=== PATIENT | female | born 1960 | race Caucasian/White ===

== ENCOUNTER 2021-06-26 13:29 | Observation (INO) | payer OTHER, SELFPAY ==
[2021-06-26] VITALS (11 sets, daily range): BP systolic 98–150; BP diastolic 46–128; PULSE 55–205; RESP 14–28; TEMP 36.1–37; O2SAT 94–100; BMI 45.5
--- NOTE | ~2021-06-26 | XR_ITS ---
EXAMINATION: XR chest 1V portable DATE: 06/26/2021 14:52 INDICATION: Chest pain and dizziness. TECHNIQUE: frontal view of the chest was obtained. COMPARISON: Chest radiograph dated 01/14/[address] dated 12/02/2018 FINDINGS: The lungs are clear with no focal airspace opacities, pulmonary edema, pleural effusion or pneumothor ax. The cardiomediastinal silhouette is normal. Median sternotomy wires. IMPRESSION: 1. No acute cardiopulmonary disease. Reviewed, dictated and finalized at location A.
--- NOTE | 2021-06-26 13:33 | ECG_ITS ---
Measurements Intervals [place] Rate: 196 P: MS: 0 QRS: 43 QRSD: 73 T: 221 QT: 218 QTc: 394 Interpretive Statements SUPRAVENTRICULAR TACHYCARDIA CANNOT RULE OUT SEPTAL INFARCT, AGE INDETERMINATE ST-T WAVE ABNORMALITY IN INF/HIGH LAT LEADS- CONSIDER ISCHEMIA BASELINE ARTIFACT- I, III, AVL, V1-V3 ABNORMAL ECG Electronically Signed On 06-26-2021 14:25:20 CDT by Daniel Mchugh D.O.
--- NOTE | 2021-06-26 13:36 | PC.NURSE ---
BETTY Lynn 6 mg Adenosine 1336
--- NOTE | 2021-06-26 13:50 | ED.GENADULT ---
HPI - General Adult General Chief complaint: Arrhythmia/Palpitations Stated complaint: HEART RACING Source: RN notes reviewed History of Present Illness HPI narrative: Patient presents to emergency department from work for arrhythmia. Patient states she is at work today when she began to feel lightheaded and dizzy and feels like her heart was racing at that time we checked her blood pressure no other heart was elevated in the upper 100s to 200s and called EMS and EMS arrived the patient was found to be in SVT. The patient was given 1 dose of adenosine with no change in SVT patient denies any chest pain or shortness of breath denies any abdominal pain nausea vomiting states she has a history of triple bypass and is followed by cardiology Dr. Ribeiro Related Data Home Medications Medication Instructions Recorded Confirmed albuterol sulfate 90 mcg/actuation 1 puff INHALATION Q4H PRN 04/23/21 05/02/21 aerosol inhaler alprazolam 1 mg tablet 1 mg PO QHS 04/23/21 05/02/21 aspirin 81 mg tablet 81 mg PO DAILY 04/23/21 05/02/21 atorvastatin 40 mg tablet 40 mg PO DAILY 04/23/21 05/02/21 clopidogrel 75 mg tablet 75 mg PO DAILY 04/23/21 05/02/21 cyclobenzaprine 10 mg tablet 10 mg PO TID 04/23/21 05/02/21 furosemide 20 mg tablet 20 mg PO QAM 04/23/21 05/02/21 hydrochlorothiazide 12.5 mg tablet 12.5 mg PO DAILY 04/23/21 05/02/21 losartan 25 mg tablet 25 mg PO DAILY 04/23/21 05/02/21 magnesium oxide 400 mg (241.3 mg 400 mg PO DAILY 04/23/21 05/02/21 magnesium) tablet metoprolol succinate 50 mg 50 mg PO DAILY 04/23/21 05/02/21 tablet,extended release 24 hr nitroglycerin 0.4 mg sublingual 0.4 mg SUBLINGUAL Q5M PRN 04/23/21 05/02/21 tablet omeprazole 20 mg capsule,delayed 20 mg PO DAILY 04/23/21 05/02/21 release tramadol 50 mg tablet 50 mg PO Q6H PRN 04/23/21 05/02/21 Allergies Allergy/AdvReac Type Severity Reaction Status Date / Time Sulfa (Sulfonamide Allergy Mild Hives Verified 06/26/21 13:50 Antibiotics) Review of Systems Review of Systems: Gen.: Denies fevers or chills ENT: Denies congestion Respiratory: Denies shortness of breath or cough CV: See HPI GI: Denies abdominal pain nausea, emesis or diarrhea denies burning, urgency, frequency or hematuria Musculoskeletal: Denies back pain or muscle pain Neuro: Denies numbness, tingling, weakness or focal weakness Skin: Denies rash Except as documented, all other systems reviewed and negative [facility] Past Medical History Medical History (Updated 06/26/21 @ 16:47 by Morgan Lynn DO) Emphysema/COPD Heart attack High cholesterol History of myocardial infarction Hypertension Surgical History Surgical History (Updated 05/02/21 @ 09:23 by Sena Galdamez) Coronary artery disease involving coronary bypass graft H/O right knee surgery History of coronary artery bypass graft Hx of bilateral hip replacements Hx of cholecystectomy Family History Family History Father , age 62 Heart disease Hypertension Mother , age 72 Hypertension Cerebrovascular accident Sibling Heart disease Grandparent Heart disease Social History Social History Smoking status: Current every day smoker Tobacco type: cigarettes Alcohol intake: current Alcohol use details: rare Additional occupation/education comments: [employer] Gender identity (if verbalized by the patient): Female Exam Narrative: APPEARANCE: No acute distress, nontoxic, resting in bed EYES: EOMI HEENT: Normocephalic, atraumatic, OMM RESPIRATORY: No respiratory distress Clear to auscultation bilaterally with no rhonchi wheezing or rales. CARDIOVASCULAR: Tachycardic and regular without murmurs rubs or gallops. ABDOMINAL: Soft, nontender, nondistended, no rebound or guarding MUSCULOSKELETAl: Moves all extremities. No clubbing, cyanosis or edema. NEURO:
[2021-06-26] MEDS: AMIODARONE 150 MG/D5W 100 ML 150 MG/100 ML BAG 600 MG IV CONT (13:55)
--- NOTE | 2021-06-26 14:05 | ECG_ITS ---
Measurements Intervals [place] Rate: 121 P: IA: 0 QRS: 41 QRSD: 77 T: 32 QT: 311 QTc: 443 Interpretive Statements ATRIAL FIBRILLATION WITH RAPID VENTRICULAR RESPONSE CANNOT RULE OUT SEPTAL INFARCT, AGE INDETERMINATE BASELINE ARTIFACT- II, III, AVR, AVF, V3-V6 ABNORMAL ECG Electronically Signed On 06-26-2021 14:26:44 CDT by Daniel Mchugh D.O.
[2021-06-26 14:11] LABS: Basophils Percent Auto 0.3 % (0.2-1.2); Eosinophils Absolute Auto 0.2 K/mm3 (0-0.3); Eosinophils Percent Auto 3.5 % (0-4.4); Hematocrit 42.8 % (37.0-47.0); Hemoglobin 13.6 g/dL (12.0-15.0); Immature Granulocyte Absolute 0.02 K/mm3 (0.00-0.031); Immature Granulocyte Percent A 0.3 % (0-0.5); Lymphocytes Percent Auto 23.1 % (18.3-44.2); Mean Corpuscular HGB Conc 31.8 g/dl (32-36); Mean Corpuscular Hemoglobin 26.5 pg (26-34); Mean Corpuscular Volume 83.3 fl (80-100); Mean Platelet Volume 10.4 fl (7.4-10.4); Monocytes Absolute Auto 0.3 K/mm3 (0.1-0.6); Monocytes Percent Auto 5.1 % (2.6-8.5); Neutrophils Absolute Auto 4.1 K/mm3 (1.3-6.7); Neutrophils Percent Auto 67.7 % (45.5-73.1); Platelet Count Result 176 k/mm3 (150-375); Red Blood Count 5.14 M/mm3 (4.2-5.4); Red Cell Distribution Width 15.3 % (11.5-14.5); White Blood Count 6.1 K/mm3 (4.5-10.0)
[2021-06-26] MEDS: AMIODARONE 360 MG/D5W 200 ML 360 MG/200 ML BAG 33.33 MG IV CONT (14:13)
[2021-06-26 14:21] LABS: INR 0.9; Prothrombin Time 12.5 Seconds (11.1-14.7)
[2021-06-26 14:22] LABS: Partial Thromboplastin Time 24.2 SECONDS (22.3-36.8)
[2021-06-26 14:28] LABS: Anion Gap 13 mmol/L (8-16); Blood Urea Nitrogen 16 mg/dL (7-17); Calcium 9.7 mg/dL (8.4-10.2); Carbon Dioxide 23 mmol/L (22-30); Chloride 107 mmol/L (98-107); Estimated CRCL calculation 65 ml/min; Estimated Glomerular Filt Rate > 60; Glucose 107 mg/dL (65-110); Magnesium 2.1 mg/dL (1.6-2.3); Potassium 3.9 mmol/L (3.4-5.0); Sodium 143 mmol/L (137-145)
[2021-06-26 14:40] LABS: Troponin I < 0.012 ng/mL (0.000-0.034)
--- NOTE | 2021-06-26 15:16 | PC.NURSE ---
BETTY Lynn 12 mg Adenosine 1342
--- NOTE | 2021-06-26 15:42 | ECG_ITS ---
Measurements Intervals [place] Rate: 76 P: 43 GA: 144 QRS: 44 QRSD: 79 T: 48 QT: 371 QTc: 419 Interpretive Statements SINUS RHYTHM WITH MARKED SINUS ARRHYTHMIA CANNOT RULE OUT SEPTAL INFARCT, AGE INDETERMINATE BASELINE ARTIFACT- II, III, AVF, V3-V6 ABNORMAL ECG Electronically Signed On 06-26-2021 17:34:57 CDT by Daniel Mchugh D.O.
--- NOTE | 2021-06-26 15:53 | PM.CNCAR ---
Assessment and Plan Assessment and plan (1) CAD (coronary artery disease), autologous vein bypass graft: Code(s): I25.810 - Atherosclerosis of coronary artery bypass graft(s) without angina pectoris Status: Acute (2) Smoker: Code(s): F17.200 - Nicotine dependence, unspecified, uncomplicated Status: Acute Assessment and Plan: Counseled regarding smoking cessation. (3) High cholesterol: Code(s): E78.00 - Pure hypercholesterolemia, unspecified Status: Inactive Assessment and Plan: On Atorvastatin. (4) Hypertension: Code(s): I10 - Essential (primary) hypertension Status: Inactive Assessment and Plan: Stable. Continue home medications. (5) ELVIE (obstructive sleep apnea): Code(s): G47.33 - Obstructive sleep apnea (adult) (pediatric) Status: Acute Assessment and Plan: Advise she needs to use CPAP regularly. (6) Obesity: Code(s): E66.9 - Obesity, unspecified Status: Acute (7) PSVT (paroxysmal supraventricular tachycardia): Code(s): I47.1 - Supraventricular tachycardia Status: Acute (8) PAF (paroxysmal atrial fibrillation): Code(s): I48.0 - Paroxysmal atrial fibrillation Status: Acute Assessment and Plan: Probably due to ELVIE. [id number] 3. Continue with Amiodarone drip for 24 hours loading, then will start PO dosing. Will stop Plavix and start Xarelto 20 mg daily. History of Present Illness History of Present Illness Consult date/time: 06/26/21 15:53 Reason for consult: PAF/PSVT 60 yr old woman presented to ED via EMS for palpitations and sob. She has a history of CAD with CABG x 3 vessels in 2019 at [place], [facility] but is noncompliant with CPAP, dyslipidemia, hypertension, smoking. Her regular photoengraver apprentice is Dr. Goodwin. Reports she was at work during lunch break when she noted fast HR and sob. An ambulance was called to [facility] and noted she was in SVT and given Adenosine without success. In ED she was given more Adenosine and it was noted she convert to sinus rhythm but lasted only 20 seconds, and then she went into atrial fib with RVR. Amiodarone drip was started which converted her to sinus rhythm. She can walk a few blocks without any problems. Reason For Visit: HEART RACING Review of Systems Review of Systems: All systems reviewed & are unremarkable except as noted in HPI and below Constitutional: Constitutional: Reports as per HPI, Denies chills and Denies fever(s) Cardiovascular: Cardiovascular: Reports as per HPI, Denies chest pain, Reports irregular heart rhythm, Denies leg edema and Reports dyspnea Respiratory: Respiratory: Reports as per HPI and Reports dyspnea Gastrointestinal: Gastrointestinal: Reports as per HPI and Denies abdominal pain Genitourinary: Genitourinary: Reports as per HPI and Denies dysuria Musculoskeletal: Musculoskeletal: Reports as per HPI Neurologic: Reports as per HPI, Denies dizziness and Denies syncope [facility] Past Medical History Medical History (Updated 06/26/21 @ 15:59 by Daniel Mchugh DO) Emphysema/COPD Heart attack High cholesterol History of myocardial infarction Hypertension Surgical History Surgical History (Updated 05/02/21 @ 09:23 by Sena Galdamez) Coronary artery disease involving coronary bypass graft H/O right knee surgery History of coronary artery bypass graft Hx of bilateral hip replacements Hx of cholecystectomy Family History Family History Father , age 62 Heart disease Hypertension Mother , age 72 Hypertension Cerebrovascular accident Sibling Heart disease Grandparent Heart disease Social History Social History Smoking status: Current every day smoker Tobacco type: cigarettes Alcohol intake: current Alcohol use details: rare Additional occupat
--- NOTE | 2021-06-26 17:26 | ADMGEN ---
This patient, Sena Pretty, was admitted to IMU Room 206-01 on 06/26/21 at 1705. Patient/family oriented to hospital policies and general routines including ID bracelet, bed and alarms, visiting hours, pain management, procedures, bathroom and other care routines, personal items, smoking policy, room service/diet, and visiting hours. Information on how to activate the Rapid Response Team has been discussed. Patient/Family are encouraged to report perceived risks to care and to ask questions if they do not understand what they are told or what they should do.
--- NOTE | 2021-06-26 17:30 | PHAR ---
HOME NEDICATION IDENTIFIED PHENTERAMINE HYDROCHLORIDE
[2021-06-26] MEDS: RIVAROXABAN 20 MG TABLET PO (18:31)
--- NOTE | 2021-06-26 19:00 | PM.IMHP ---
H&P: HPI History of Present Illness Date/Time: 06/26/21 19:00 Chief Complaint: Racing heart. Narrative: This is a 60-year-old female smoker with coronary artery disease, hypertension, hyperlipidemia, untreated sleep apnea, and COPD who presented to the emergency department earlier today via EMS from her place of employment for evaluation of a racing heart. She felt in her usual state of health when she went to work today. At lunchtime she when outside with her coworkers and she began to feel sweaty, short of breath, and a bit lightheaded. She went inside, used her inhaler, sat down for a few minutes, and felt a bit better. She went back to work but shortly thereafter she once again began feeling lightheaded and dizzy with increasing shortness of breath. 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 She reports having a normal blood pressure however she was extremely tachycardic with a pulse in the high 190s. On EMS arrival she was in SVT and was given 1 dose of adenosine with no change. Two subsequent doses of adenosine were given and after the 3rd toe she went into atrial fibrillation with rapid ventricular response. She was bolused with amiodarone and she has subsequently converted to a sinus rhythm. at the time my evaluation she feels back to her usual state of health and has no specific complaints. She denies fever, cold and flu symptoms, chest pain, pleuritic pain, current shortness of breath, current palpitations, nausea, vomiting. Review of Systems Review of Systems: Twelve systems were reviewed with pertinent positives and negatives as per HPI. No recent cold or flu symptoms. She had COVID in November 2020. I believe she was vaccinated thereafter. No cough or shortness of breath. She does have dyspnea with exertion on occasion due to emphysema. Except as documented, all other systems were reviewed and are negative. [facility] Past Medical History Medical History (Updated 06/26/21 @ 22:30 by Nella Rojo PA-C) Anxiety Coronary artery disease Dyslipidemia Emphysema/COPD Gastroesophageal reflux disease History of myocardial infarction Hypertension Obstructive sleep apnea Not compliant with treatment. Tobacco dependence Surgical History Surgical History (Updated 06/26/21 @ 22:26 by Nella Rojo PA-C) History of arthroscopy of right knee History of bilateral hip replacements History of section History of cholecystectomy History of coronary artery bypass graft (2019) Family History Family History Father , age 62 Heart disease Mother , age 72 Cerebrovascular accident Sibling Heart disease Grandparent Heart disease Social History Social History (Updated 06/26/21 @ 22:27 by Nella Rojo PA-C) Social History: Surrogate decision maker: Erica Pretty, daughter. Code status: Full code. Years smoked: 35 Smoking status: Current every day smoker Tobacco type: cigarettes Additional smoking assessment comments: Smokes about 4 cigarettes a day. Alcohol intake: current Alcohol use details: Consumes alcohol rarely social occasions and in moderation. Substance use: never Additional living arrangements comments: Resides in [place] with her , 2 children, and some grandchildren. 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 Meds Home Medications and Allergies Home Medications Medication Instructions Recorded Confirmed Type albuterol sulfate 90 mcg/actuation 1 puff INHALATION Q4H PRN 04/23/21 06/26/21 History aerosol inhaler alprazolam 1 mg tablet 1 mg PO QHS 04/23/21 06/26/21 History aspirin 81 mg tablet 81 mg PO DAILY 04/23/21 06/26/21 History atorvastatin 40 mg tablet 40 mg PO DAILY 04/23/21 06/26/21 History clopidogrel 75 mg tablet 75 mg PO DAILY 04/23/21 0
[2021-06-26 19:35] LABS: Troponin I 0.023 ng/mL (0.000-0.034)
[2021-06-26] MEDS: AMIODARONE 360 MG/D5W 200 ML 360 MG/200 ML BAG 16.67 MG IV CONT (20:36)
[2021-06-26 20:52] LABS: Troponin I 0.021 ng/mL (0.000-0.034)
[2021-06-27] VITALS (12 sets, daily range): BP systolic 108–150; BP diastolic 47–63; PULSE 58–84; RESP 16–18; TEMP 36.4–36.7; O2SAT 94–100
--- NOTE | 2021-06-27 | ECHO_ITS ---
Patient Info Name: Sena Pretty Age: 60 years : 1960 Gender: Female Ht: 60 in Wt: 242 lbs BSA: 2.23 m2 HR: 58 bpm BP: 108 / 63 mmHg Technical Quality: Fair Exam Date: 06/27/2021 8:04 AM Exam Location: [facility] Patient Status: Inpatient Admit Date: 06/26/2021 Staff Ordering Physician: Daniel Mchugh DO Truck Driver Supervisor: Marcella Willams RDCS Attending Provider: Phong Chung MD Referring Physician: Jeison HASSAN; Exam Type: CA echo doppler color flow Study Info Indications I48.0 - Paroxysmal atrial fibrillation Complete two-dimensional, color flow and Doppler transthoracic echocardiogram is performed. Summary 1. Complete two-dimensional, color flow and Doppler transthoracic echocardiogram is performed. 2. Left ventricular chamber dimension is normal. 3. Left ventricular systolic function is normal, estimated at 60-65%. 4. The left ventricular diastolic function is normal. 5. E/e' 17 is elevated. 6. There is trace mitral valve regurgitation. 7. No pulmonary hypertension, estimated pulmonary arterial systolic pressure is 28 mmHg. 8. There is trace pulmonic regurgitation. Left Ventricle E/e' 17 is elevated. Left ventricular chamber dimension is normal. Left ventricular systolic function is normal, estimated at 60-65%. The left ventricular diastolic function is normal. Right Ventricle Right ventricular chamber dimension is normal. Right ventricular systolic function is normal. Left Atria Left atrial chamber dimension is normal. Right Atria Right atrial chamber dimension is normal. Aortic Valve The aortic valve is trileaflet. There is no aortic valve stenosis. There is no aortic valve regurgitation. Pulmonic Valve There is trace pulmonic regurgitation. Mitral Valve There is no mitral valve stenosis. There is trace mitral valve regurgitation. Tricuspid Valve There is no tricuspid valve regurgitation. No pulmonary hypertension, estimated pulmonary arterial systolic pressure is 28 mmHg. Pericardium/Pleural There is no pericardial effusion. Inferior Vena Cava Normal inferior vena cava with >50% collapse upon inspiration consistent with normal right atrial pressure, 5 mmHg. Aorta The aortic root size at the sinus of Valsalva is normal. Left Ventricular Outflow Tract Name Value Normal LVOT 2D LVOT Diameter 2.0 cm LVOT Doppler LVOT Peak Gradient 4 mmHg LVOT Mean Gradient 2 mmHg LVOT VTI 25 cm LVOT VTI/AV VTI Ratio 0.7 LVOT Stroke Volume 78 ml LVOT CO 4.4 l/min LVOT CI 2.0 l/min/m2 Pulmonic Valve Name Value Normal RVOT Doppler RVOT Peak Gradient 2 mmHg PV D
[2021-06-27 05:21] LABS: Basophils Percent Auto 0.4 % (0.2-1.2); Eosinophils Absolute Auto 0.2 K/mm3 (0-0.3); Eosinophils Percent Auto 4.1 % (0-4.4); Hematocrit 35.9 % (37.0-47.0); Hemoglobin 11.3 g/dL (12.0-15.0); Immature Granulocyte Absolute 0.03 K/mm3 (0.00-0.031); Immature Granulocyte Percent A 0.6 % (0-0.5); Lymphocytes Absolute Auto 1.08 K/mm3 (0.9-3.2); Lymphocytes Percent Auto 21.9 % (18.3-44.2); Mean Corpuscular HGB Conc 31.5 g/dl (32-36); Mean Corpuscular Hemoglobin 26.4 pg (26-34); Mean Corpuscular Volume 83.9 fl (80-100); Mean Platelet Volume 10.1 fl (7.4-10.4); Monocytes Absolute Auto 0.3 K/mm3 (0.1-0.6); Monocytes Percent Auto 6.5 % (2.6-8.5); Neutrophils Absolute Auto 3.3 K/mm3 (1.3-6.7); Neutrophils Percent Auto 66.5 % (45.5-73.1); Platelet Count Result 137 k/mm3 (150-375); Red Blood Count 4.28 M/mm3 (4.2-5.4); Red Cell Distribution Width 15.5 % (11.5-14.5); White Blood Count 4.9 K/mm3 (4.5-10.0)
[2021-06-27 05:42] LABS: Alanine Aminotransferase 26 U/L (4-35); Albumin Level 3.3 g/dL (3.5-5.1); Alkaline Phosphatase 76 U/L (38-126); Anion Gap 8 mmol/L (8-16); Aspartate Amino Transferase 26 U/L (14-36); Bilirubin,Total 0.4 mg/dL (0.2-1.3); Blood Urea Nitrogen 13 mg/dL (7-17); Calcium 8.7 mg/dL (8.4-10.2); Carbon Dioxide 24 mmol/L (22-30); Chloride 107 mmol/L (98-107); Estimated CRCL calculation 80 ml/min; Estimated Glomerular Filt Rate > 60; Glucose 87 mg/dL (65-110); Magnesium 1.9 mg/dL (1.6-2.3); Sodium 139 mmol/L (137-145)
--- NOTE | 2021-06-27 07:45 | PM.PNCARD ---
Progress Note: A&P Assessment and Plan (1) CAD (coronary artery disease), autologous vein bypass graft: Code(s): I25.810 - Atherosclerosis of coronary artery bypass graft(s) without angina pectoris Status: Acute (2) Smoker: Code(s): F17.200 - Nicotine dependence, unspecified, uncomplicated Status: Acute Assessment and Plan: Counseled regarding smoking cessation. (3) High cholesterol: Code(s): E78.00 - Pure hypercholesterolemia, unspecified Status: Inactive Assessment and Plan: On Atorvastatin. (4) Hypertension: Code(s): I10 - Essential (primary) hypertension Status: Chronic Assessment and Plan: Stable. Continue home medications. (5) ELVIE (obstructive sleep apnea): Code(s): G47.33 - Obstructive sleep apnea (adult) (pediatric) Status: Acute Assessment and Plan: Advise she needs to use CPAP regularly. (6) Obesity: Code(s): E66.9 - Obesity, unspecified Status: Acute (7) PSVT (paroxysmal supraventricular tachycardia): Code(s): I47.1 - Supraventricular tachycardia Status: Acute (8) PAF (paroxysmal atrial fibrillation): Code(s): I48.0 - Paroxysmal atrial fibrillation Status: Acute Assessment and Plan: Probably due to ELVIE. [id number] 3. Continue with Amiodarone drip for 24 hours loading, then will start PO dosing. Stopped Plavix and started Xarelto 20 mg daily. March d/c home after Amiodarone drip completes total of 24 hours, then start Amiodarone 200 mg PO BID. She needs f/u with her regular building custodian, Dr. Goodwin in 1-2 weeks. Subjective Date/time seen: 06/27/21 07:45 Doing well. No chest pain or sob. Exam Const: General: cooperative, healthy appearing and comfortable Nutritional Appearance: obese Resp: Auscultation: clear to auscultation bilaterally, no crackles, no rales, no rhonchi and no wheezes Cardio: Jugular venous distension: no JVD Heart sounds: no murmurs GI: GI Palp: No abdominal tenderness and Yes Soft to palpation Neuro: General: oriented to person, oriented to place and oriented to time Extrem: Right lower extremity: no edema Left lower extremity: no edema Objective Data Vital Signs Vital Signs: Vital Signs - 24 hr 06/26/21 13:26 06/26/21 13:55 06/26/21 14:13 Temperature 97.8 F Pulse Rate 205 H 168 H 122 H Respiratory Rate 28 H Blood Pressure 135/89 139/67 134/92 H Pulse Oximetry 98 06/26/21 14:33 06/26/21 16:08 06/26/21 16:40 Temperature 96.9 F L Pulse Rate 122 H 68 66 Respiratory Rate 19 14 16 Blood Pressure 150/128 H 119/65 140/82 Pulse Oximetry 98 100 100 06/26/21 17:05 06/26/21 18:00 06/26/21 20:00 Temperature 98.1 F 98.6 F Pulse Rate 60 65 62 Respiratory Rate 16 18 Blood Pressure 98/46 L 122/59 L Pulse Oximetry 98 100 06/26/21 21:45 06/26/21 22:00 06/27/21 00:00 Temperature 97.5 F L Pulse Rate 55 L 65 61 Respiratory Rate 17 17 Blood Pressure 111/59 L Pulse Oximetry 94 94 06/27/21 02:00 06/27/21 04:00 06/27/21 06:00 Temperature 97.6 F Pulse Rate 62 59 L 59 L Respiratory Rate 18 Blood Pressure 108/63 Pulse Oximetry 95 06/27/21 07:42 Temperature 97.9 F Pulse Rate 84 Respiratory Rate 16 Blood Pressure 121/57 L Pulse Oximetry 96 Intake/Output Intake/Output: Intake & Output 06/24/21 06/25/21 06/26/21 06/27/21 23:59 23:59 23:59 23:59 Intake Total 340 500 Output Total 400 Balance 340 100 Meds/Results Medications: Active Medications Generic Name Dose Route Start Last Admin Trade Name Freq PRN Reason Stop Dose Admin Albuterol 1 puff 06/26/21 22:34 Albuterol Sulfate (*Sp) Aerosol 1 Puff INHALATION Q4H PRN Shortness Of Breath Or Wheezing Alprazolam 1 mg 06/26/21 23:50 06/27/21 02:31 Alprazolam (*Crx) 0.5 Mg Tablet PO Not Given HS [facility] Aspirin 81 mg 06/27/21 08:00 Aspirin 81 Mg Chewable Tablet PO DAILY@0800 [facility] Atorvastat
[2021-06-27] MEDS: AMIODARONE 360 MG/D5W 200 ML 360 MG/200 ML BAG 16.67 MG IV CONT (09:00)
[2021-06-27] MEDS: ASPIRIN 81 MG CHEWABLE TABLET PO (09:05)
[2021-06-27] MEDS: METOPROLOL SUCCINATE EXT REL 50 MG TABCR PO (09:05)
[2021-06-27] MEDS: ATORVASTATIN 40 MG TABLET PO (09:06)
[2021-06-27] MEDS: LOSARTAN POTASSIUM 25 MG TABLET PO (09:06)
--- NOTE | 2021-06-27 15:51 | PM.DS ---
DS: Admitting Diagnosis Admitting Diagnosis AFib with RVR DS: Discharge Diagnosis Discharge Diagnosis (1) Atrial fibrillation with RVR: Code(s): I48.91 - Unspecified atrial fibrillation Status: Acute (2) PSVT (paroxysmal supraventricular tachycardia): Code(s): I47.1 - Supraventricular tachycardia Status: Acute (3) PAF (paroxysmal atrial fibrillation): Code(s): I48.0 - Paroxysmal atrial fibrillation Status: Acute (4) Supraventricular tachycardia: Code(s): I47.1 - Supraventricular tachycardia Status: Acute DS: Summary Hospital Course Hospital Course: This is a 60-year-old female smoker with coronary artery disease, hypertension, hyperlipidemia, untreated sleep apnea, and COPD who presented to the emergency department via EMS from her place of employment for evaluation of a racing heart. She felt in her usual state of health when she went to work today. At lunchtime she when outside with her coworkers and she began to feel sweaty, short of breath, and a bit lightheaded. She went inside, used her inhaler, sat down for a few minutes, and felt a bit better. She went back to work but shortly thereafter she once again began feeling lightheaded and dizzy with increasing shortness of breath. 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 She reports having a normal blood pressure however she was extremely tachycardic with a pulse in the high 190s. On EMS arrival she was in SVT and was given 1 dose of adenosine with no change. Two subsequent doses of adenosine were given and after the 3rd one she went into atrial fibrillation with rapid ventricular response. She was bolused with amiodarone and she has subsequently converted to a sinus rhythm. she has the amiodarone infusion C was back to sinus rhythm and back to her usual state of health. She was admitted for continuation of amiodarone infusion and cardiology evaluation. Dr. bird saw the patient and was continued on amiodarone and was switched to oral amiodarone after 24 hour of infusion. She was also started on Xarelto for stroke prophylaxis. With start of Xarelto her Plavix was stopped she is advised to follow-up with her regular maintenance technician Dr. Goodwin in 1-2 weeks. AFib with RVR could could be related to underlying untreated sleep apnea which she would work with her primary care doctor to follow-up on. She was also recently started on anti obesity medication which sounds like phentermine have advised her to stop taking that as well. Time Spent with Patient Time attestation: Total time spent providing and/or coordinating discharge services: Exam Narrative: General: Well-developed female sitting up in bed no distress. HEENT: Normocephalic, atraumatic. PERRL, EOMI. Sclerae anicteric. Oral mucosa moist. Oropharynx is crowded. Neck: Supple. No JVD. Respiratory: Lungs are clear to auscultation bilaterally. Cardiovascular: Regular rate and rhythm with S1-S2. Occasional ectopy. Gastrointestinal: Abdomen is soft, obese, nontender, and nondistended with positive bowel sounds. Skin: Warm and dry. No rash or lesions on limited exam. Extremities: No cyanosis or clubbing. Trace flora ankle edema bilaterally. Radial and pedal pulses intact. Negative Steffanie sign bilaterally. Neurological: Alert. Cranial nerves 2-12 are grossly intact. No gross focal deficits to casual conversation. Psychiatric: Pleasant and cooperative with normal mood and affect. Judgment and insight intact. DS: Data Data Completed and Pending Labs on day of discharge: Labs from last 24 hours 06/27/21 06/27/21 06/26/21 04:54 04:54 20:23 WBC 4.9 RBC 4.28 Hgb 11.3 L Hct 35.9 L MCV 83.9 MCH 26.4 MCHC 31.5 L RDW 15.5 H Plt Count 137 L MPV 10.1 Immature Gran % (Auto) 0.6 H Neut % (Auto) 66.5 Lymph % (Auto) 21.9 Aurora % (Auto) 6.5
[2021-06-27] MEDS: AMIODARONE HCL 200 MG TABLET PO (17:37)
[2021-06-27] MEDS: RIVAROXABAN 20 MG TABLET PO (17:38)
== END 2021-06-27 18:20 | disposition home or self-care (01) ==
LOC: ANHED 13:54 → ANHIMU 16:47
PROVIDERS: Admitting Provider Internal Medicine; Emergency Provider Emergency Medicine; PCP Family Medicine; Visit Provider Internal Medicine
DX: I47.1 Supraventricular tachycardia (principal); I48.91 Unspecified atrial fibrillation; I48.0 Paroxysmal atrial fibrillation; R00.2 Palpitations; E78.5 Hyperlipidemia, unspecified; E66.9 Obesity, unspecified; F17.210 Nicotine dependence, cigarettes, uncomplicated; G47.33 Obstructive sleep apnea (adult) (pediatric); I10 Essential (primary) hypertension; I25.10 Atherosclerotic heart disease of native coronary artery without angina pectoris; I25.2 Old myocardial infarction; J44.9 Chronic obstructive pulmonary disease, unspecified; R06.02 Shortness of breath; Z68.42 Body mass index [BMI] 45.0-49.9, adult; Z96.643 Presence of artificial hip joint, bilateral; Z91.19 Patient's noncompliance with other medical treatment and regimen; Z95.1 Presence of aortocoronary bypass graft
CPT/HCPCS: 36415; 71045; 80048; 80053; 83735; 84443; 84484; 85025; 85610; 85730; 93005; 93306; 96365; 96366; 99285; A9270; G0378; G0379; J0153; J0282

== ENCOUNTER 2021-08-22 08:57 | Outpatient (CLI) | payer OTHER, SELFPAY ==
--- NOTE | 2021-08-22 12:22 | WPDPFTINT ---
PFT Procedure Performed PFT Procedure Performed Plethysmography (Lung Vol) Diffusing Cap (DLCO) Flow Vol Loop Spirometry w/o Bronchodil PFT Interpretation This is a pulmonary function test with spirometry, plethysmography and diffusing capacity. The test was performed and results interpreted in accordance with the 2019 and 2005 ATS/ERS Task Force guidelines respectively using the Global Lung Function Initiative-2012 reference equations. Patient demonstrated good effort and cooperation. Reproducibility criteria were met. The quality of the spirometry maneuver was Grade A. Findings: Spirometry: The contour the inspiratory and expiratory flow tracing are normal. The FVC is 2.31 L, 86% predicted. The FEV1 is 1.80 L, 84% predicted. The FEV1: FVC ratio 78%. Plethysmography: The total lung capacity is 3.60 L, 81% predicted. The functional residual capacity is 1.50 L, 60% predicted. The residual volume is 1.30 L, 72% predicted. Diffusing capacity: The absolute diffusion capacity is 14.7, 74% predicted. The diffusing capacity corrected for alveolar volume is 4.65, 101% predicted. Impression: The spirometry is normal without evidence of an obstructive abnormality. The lung volumes are normal. The diffusing capacity is normal. There are no prior studies for comparison
== END 2021-08-22 08:58 | disposition home or self-care (01) ==
LOC: ANHPFT 08:59
PROVIDERS: PCP Family Medicine; Visit Provider Family Medicine
DX: J44.9 Chronic obstructive pulmonary disease, unspecified (principal)
CPT/HCPCS: 94375; 94726; 94729

== ENCOUNTER 2022-01-15 15:00 | Outpatient (RCR) | payer OTHER, SELFPAY ==
--- NOTE | 2021-12-13 16:01 | PTOPEVAL ---
PHYSICAL THERAPY EVALUATION AND PLAN OF CARE 12-13-21 Thank you for referring Sena Pretty to [facility].? She is scheduled to be seen for therapy? 1 x/week for 5 weeks. Please review, sign, date and return this plan of care PAULA. I agree with and certify that the following plan of care is medically necessary. Referring Physician Date Attending Provider: Walker Gonzalez MD *PT Outpatient Evaluation Document 12/13/21 15:10 JULIÁN (Rec: 12/13/21 15:59 JULIÁN [id number]) Past Medical History Source of Past Medical History Recalled from Previous Visit, Confirmed with Patient/Family Neurological History Hx Neurological Disorders No Significant History Cardiovascular History Hx Atrial Fibrillation Yes: admit 06/26/21 Hx Cardiac Catheterization Yes Hx Coronary Artery Bypass Graft Yes: 2018 Hx Hypercholesterolemia Yes Hx Hypertension Yes: meds Hx Myocardial Infarction Yes: 2019 Respiratory History Hx Chronic Obstructive Pulmonary Disease Yes (COPD) Hx Emphysema Yes Hx Pneumonia Yes: COVID January 2021 Gastrointestinal History Hx Cholecystectomy Yes: 1982 Hx Hernia Yes: non surgical, monitoring Genitourinary History Hx Genitourinary Disorders No Significant History Musculoskeletal History Hx Arthritis Yes: arthritis and B knee pain Hx Joint Replacement Yes: Bilateral hip replacement Hx Orthopedic Surgery Yes: R knee arthroscopy Hematological History Hx Hematological Disorders No Significant History Endocrine History Hx Endocrine Disorders No Significant History Reproductive History Hx Section Yes: X5 Psychosocial History Hx Anxiety Yes Hx Depression Yes Pain History History of Any Previous or Ongoing No Significant History Instance of Pain Anesthesia History Hx Anesthesia Reactions No Significant History Other History Hx Other Medical Conditions Yes: obesity Evaluation Information Problem Diagnosis R knee pain Onset Aug 2021 Subjective Information gradual increase in knee pain, Query Text:As Reported By Patient/ without injury or trauma to Family knee; Diagnostic Tests X-Rays For This Problem Yes: arthritis of knee MRI For This Problem No Other Tests For This Problem No Previous Treatments Previous Treatments For This Problem no therapy for knees Prior Level of Function Activity Level (Last 3 Months) 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
--- NOTE | 2021-12-19 11:09 | PCPTNOTE ---
Patient called & cancelled scheduled appointment this date due to having Covid symptoms, & is waiting to be tested.
--- NOTE | 2022-01-09 11:19 | PCPTNOTE ---
Patient called & cancelled scheduled appointment this date due to going to get an injection today.
--- NOTE | 2022-01-15 15:47 | PCPTNOTE ---
pt did not show for today's reevaluation; I called her--she stated, had to work and goes to see the Dr tomorrow. Discussed with her if PT is to continue, she will have to call for a reeval appt.
--- NOTE | 2022-02-07 13:18 | PCPTNOTE ---
PHYSICAL THERAPY DISCHARGE 02-07-22 Attending Provider: Walker Gonzalez MD Patient:Sena Pretty Date of :1960 Ms. Pretty has not returned for any further treatments since 01/15/2022, therefore she will be discharged at this time. The goals were not addressed. She has received 3 PT sessions, from December 13 to , with 2 call/cancel and 1 no show appointments. Thank you for referring Sena to [facility]. Please review, sign, date and return this discharge summary PAULA. I have been updated about the patient's current status and I agree with discharge from the above service at this time. Referring Physician Date
== END 2022-02-07 16:27 | disposition home or self-care (01) ==
LOC: ANHPT 15:00
PROVIDERS: PCP Family Medicine; Visit Provider Orthopaedic Surgery
DX: M25.561 Pain in right knee (principal)
CPT/HCPCS: 97110; 97140; 97161

== ENCOUNTER 2022-08-01 13:44 | Outpatient (CLI) | payer OTHER, SELFPAY ==
--- NOTE | ~2022-08-01 | US_ITS ---
EXAMINATION: US venous doppler LE RT DATE: 08/01/2022 14:35 INDICATION: Right lower leg swelling TECHNIQUE: Grayscale ultrasound images without and with compression and Doppler ultrasound images of the right lower extremity veins were obtained. COMPARISON: None. FINDINGS: The visualized portions of right common femoral vein, profunda (deep) femoral vein, femoral vein, pop liteal vein, peroneal trunk, posterior tibial veins, peroneal veins, gastrocnemius vein and greater s aphenous vein outflow are patent. IMPRESSION: 1. No deep venous thrombosis in the right lower limb. Reviewed, dictated and finalized at location A.
== END 2022-08-01 13:45 | disposition home or self-care (01) ==
LOC: ANHIMG 13:46
PROVIDERS: PCP Family Medicine; Visit Provider Family Medicine
DX: R22.41 Localized swelling, mass and lump, right lower limb (principal)
CPT/HCPCS: 93971

== ENCOUNTER 2023-08-22 13:45 | Emergency (ER) | payer OTHER, SELFPAY ==
[2023-08-22 13:47] VITALS: BP 146/107; PULSE 81; RESP 18; TEMP 36.4; O2SAT 98
[2023-08-22 14:11] LABS: Appearance Urine Clear (Clear); Bacteria Urine None Seen /hpf; Bilirubin Urine Negative (Negative); Blood Urine 3+ (Negative); Color Urine Yellow (Yellow); Glucose Urine UA Negative (Negative); Ketones Urine Negative (Negative); Leukocyte Esterase Ur Negative LEU/UL (Negative); Nitrate Urine Negative (Negative); Non Pathogenic Casts 0-2; Protein Urine Negative (Negative); RBC Urine 0-2 /hpf (0-2); Specific Grav Ur 1.005 (1.001-1.035); Squamous Epithelial Cell Urine Occasional /hpf (Few); Urobilinogen Urine 0.2 mg/dL (<2.0); WBC Urine 0-5 /hpf; pH Urine 5.5 (5.0-9.0)
[2023-08-22 14:13] LABS: Add Urine Microscopic? YES
--- NOTE | 2023-08-22 14:19 | PC.NURSE ---
EDP at bedside to assess pt.
[2023-08-22 14:53] LABS: Basophils Percent Auto 0.4 % (0.2-1.2); Eosinophils Absolute Auto 0.1 K/mm3 (0-0.3); Eosinophils Percent Auto 2.2 % (0-4.4); Hemoglobin 13.3 g/dL (12.0-15.0); Immature Granulocyte Absolute 0.01 K/mm3 (0.00-0.031); Immature Granulocyte Percent A 0.2 % (0-0.5); Lymphocytes Absolute Auto 1.45 K/mm3 (0.9-3.2); Mean Corpuscular HGB Conc 31.7 g/dl (32-36); Mean Corpuscular Hemoglobin 27.9 pg (26-34); Mean Corpuscular Volume 88.2 fl (80-100); Mean Platelet Volume 10.1 fl (7.4-10.4); Monocytes Absolute Auto 0.4 K/mm3 (0.1-0.6); Monocytes Percent Auto 6.9 % (2.6-8.5); Neutrophils Absolute Auto 3.4 K/mm3 (1.3-6.7); Neutrophils Percent Auto 63.3 % (45.5-73.1); Platelet Count Result 165 k/mm3 (150-375); Red Blood Count 4.76 M/mm3 (4.2-5.4); Red Cell Distribution Width 15.5 % (11.5-14.5); White Blood Count 5.4 K/mm3 (4.5-10.0)
[2023-08-22 15:07] LABS: Alanine Aminotransferase 36 U/L (6-35); Albumin Level 4.3 g/dL (3.5-5.1); Alkaline Phosphatase 70 U/L (38-126); Anion Gap 8 mmol/L (8-16); Aspartate Amino Transferase 37 U/L (14-36); Bilirubin,Total 0.6 mg/dL (0.2-1.3); Blood Urea Nitrogen 15 mg/dL (7-17); Calcium 9.2 mg/dL (8.4-10.2); Carbon Dioxide 26 mmol/L (22-30); Chloride 102 mmol/L (98-107); Estimated CRCL calculation 69 ml/min; Estimated Glomerular Filt Rate > 60; Glucose 116 mg/dL (65-110); Sodium 136 mmol/L (137-145)
--- NOTE | 2023-08-22 15:25 | ED.GENADULT ---
HPI - General Adult General Chief complaint: Vaginal Bleeding Stated complaint: Vaginal bleeding Time Seen by Provider: 08/22/23 13:53 History of Present Illness HPI narrative: Sena Pretty is a 62 y/o female > 10 years post menopausal who presents with reports of vaginal bleeding off and on the past two weeks. She states that she had a heavier flow 2 days ago and then the last two days only noticed slight bleeding with wiping. She then had another gush of heavier bleeding last night but now the vaginal bleeding has stopped. She denies fevers, reports having some intermittent chills at night/ denies abdominal pain/ nausea/vomiting. She reports having an appointment with OBGYN this week but wanted to make sure she was not losing too much blood. Related Data Home Medications Medication Instructions Recorded Confirmed albuterol sulfate 90 mcg/actuation 1 puff inhalation Q4H PRN 04/23/21 06/26/21 aerosol inhaler Shortness Of Breath Or Wheezing alprazolam 1 mg tablet (Xanax) 1 mg PO QHS 04/23/21 06/26/21 aspirin 81 mg tablet 81 mg PO DAILY 04/23/21 06/26/21 atorvastatin 40 mg tablet 40 mg PO DAILY 04/23/21 06/26/21 cyclobenzaprine 10 mg tablet 10 mg PO HS 04/23/21 06/26/21 furosemide 20 mg tablet 20 mg PO QAM PRN edema 04/23/21 06/26/21 losartan 25 mg tablet 25 mg PO DAILY 04/23/21 06/26/21 metoprolol succinate 50 mg 50 mg PO DAILY 04/23/21 06/26/21 tablet,extended release 24 hr nitroglycerin 0.4 mg sublingual 0.4 mg sublingual Q5M PRN Chest 04/23/21 06/26/21 tablet Pain omeprazole 20 mg capsule,delayed 20 mg PO DAILY PRN Acid Reflux 04/23/21 06/26/21 release tramadol 50 mg tablet 50 mg PO Q6H PRN Pain 04/23/21 06/26/21 Allergies Allergy/AdvReac Type Severity Reaction Status Date / Time Sulfa (Sulfonamide Allergy Mild Hives Verified 06/26/21 13:50 Antibiotics) Review of Systems Review of Systems: CONSTITUTIONAL: Denies fever, chills, or sweats. EYES: Denies visual changes, redness, or discharge. ENT: Denies rhinorrhea, congestion, sore throat, or otalgia. CARDIOVASCULAR: Denies chest pain, palpitations, or edema. RESPIRATORY: Denies cough or dyspnea. GASTROINTESTINAL: Denies abdominal pain, nausea, vomiting, or diarrhea. GENITOURINARY: Denies dysuria or hematuria. reports of vaginal bleeding off and on the past two weeks. SKIN: Denies rash or itching. MUSCULOSKELETAL: Denies back pain, joint pain, or myalgia. NEUROLOGIC: Denies headache, numbness, dizziness, or weakness. PSYCHIATRIC: Denies anxiety or depression. [facility] Past Medical History Medical History Anxiety Coronary artery disease Dyslipidemia Emphysema/COPD Gastroesophageal reflux disease History of myocardial infarction Hypertension Obstructive sleep apnea Not compliant with treatment. Tobacco dependence Surgical History Surgical History History of arthroscopy of right knee History of bilateral hip replacements History of section History of cholecystectomy History of coronary artery bypass graft (2019) Family History Family History Father , age 62 Heart disease Mother , age 72 Cerebrovascular accident Sibling Heart disease Grandparent Heart disease Social History Social History Social History: Surrogate decision maker: Erica Pretty, daughter. Code status: Full code. Years smoked: 35 Smoking status: Current every day smoker Tobacco type: cigarettes Additional smoking assessment comments: Smokes about 4 cigarettes a day. Alcohol intake: current Alcohol use details: Consumes alcohol rarely social occasions and in moderation. Substance use: never Living arrangements: with family Additional living arrangements comments: Resides in [place] with her , 2 children, and
[2023-08-22 16:16] VITALS: BP 140/96; PULSE 80; RESP 18; TEMP 36.8; O2SAT 100
== END 2023-08-22 16:18 | disposition home or self-care (01) ==
PROVIDERS: Emergency Provider Nurse Practitioner Family; PCP Family Medicine
DX: N95.0 Postmenopausal bleeding (principal); I25.10 Atherosclerotic heart disease of native coronary artery without angina pectoris; I25.2 Old myocardial infarction; I10 Essential (primary) hypertension; E78.5 Hyperlipidemia, unspecified; J43.9 Emphysema, unspecified; K21.9 Gastro-esophageal reflux disease without esophagitis; G47.33 Obstructive sleep apnea (adult) (pediatric); F17.210 Nicotine dependence, cigarettes, uncomplicated; F41.9 Anxiety disorder, unspecified; Z96.643 Presence of artificial hip joint, bilateral; Z90.49 Acquired absence of other specified parts of digestive tract; Z79.82 Long term (current) use of aspirin; Z79.01 Long term (current) use of anticoagulants
CPT/HCPCS: 36415; 80053; 81001; 85025; 86850; 86900; 86901; 99284

== ENCOUNTER 2023-10-08 02:44 | Day surgery (SDC) | payer OTHER, SELFPAY ==
[2023-10-05 10:43] VITALS: BMI 48.0
--- NOTE | 2023-10-05 10:53 | PC.NURSE ---
Report to the Outpatient Waiting Room, entrance under the green pavilion located off [facility], at time 1200 on date 10/08/23. Planned Procedure Time: 1400. Time changes happen often and if your time is changed the preop area will call you the afternoon before. - You and your visitor will be asked to self-screen and do not enter if you have any COVID symptoms. - A mask is optional within the hospital at this time. Patients may have clear liquids (water, carbonated beverages, clear teas, apple juice) until 3 hours prior to surgery with a maximum of 20 ounces. - No food from midnight until time of surgery Take the following medications with a SIP of water the morning of surgery: METOPROLOL DO NOT STOP ANY OF YOUR OTHER PRESCRIPTION MEDICATIONS PRIOR TO SURGERY ?EXCEPT THE FOLLOWING Medications to discontinue per physician: VITAMINS/SUPPLEMENTS Date to take last dose: NO MORE UNTIL AFTER SURGERY PER PT, LAST DOSE OF ELIQUIS TO BE 10/07 Please no make-up, nail korean, hairspray, perfume, deodorant, or body powder the day of surgery. No jewelry (including any body piercings) or valuables the day of surgery, leave them at home. Please take a shower or bath the night before, or the morning of, surgery with an antibacterial soap. Wear comfortable, loose fitting clothing. - Jewelry must be removed prior to entering the operating room. Rings and piercings that are not removed may be cut off. - The hospital will not accept responsibility for valuables. - Please leave all valuables, including medications, at home the day of surgery. If you are going home after surgery, a licensed tow car driver must drive you home. - NO public transportation without another adult if you receive anesthesia. - We recommend that an adult stay with you for 24 hours following discharge. - We also recommend that you do not drive, make important decision, drink alcoholic beverages, or take any drugs that were not prescribed by your health care provider for at least 24 hours after your discharge time. Follow any additional instructions given to you from your surgeon. If you or anyone in your household have experienced Covid symptoms in the past week, please notify your surgeon or the nurse liaison at the phone number below for possible testing. Telephone instructions given to PT - TWAN DOMINGUEZ and asked if any additional questions and then verbalized understanding. Patient advised to call surgeon office or pre surgery nurse liaison [phone] if any additional questions.
[2023-10-08] VITALS (8 sets, daily range): BP systolic 134–162; BP diastolic 55–98; PULSE 63–90; RESP 14–20; TEMP 36.2–36.5; O2SAT 96–100
--- NOTE | 2023-10-08 11:17 | PM.IMHP ---
H&P: HPI History of Present Illness Date/Time: 10/08/23 11:17 Chief Complaint: postmenopausal bleeding Narrative: 63 yo female who presents for hysteroscopy D&C for postmenopausal bleeding. Pt presented to the office after and episode of postmenopausal bleeding. Pelvic US showed a thickened endometrial lining. Patient has not had any continued bleeding. Review of Systems Cardiovascular: Cardiovascular: Denies chest pain, Denies leg edema, Denies palpitations, Denies dyspnea and Denies dyspnea on exertion Respiratory: Respiratory: Denies cough, Denies dyspnea and Denies dyspnea on exertion Gastrointestinal: Gastrointestinal: Denies abdominal pain, Denies constipation, Denies diarrhea, Denies nausea and Denies vomiting Genitourinary: Genitourinary: Denies hematuria, Denies urinary frequency, Denies dysuria, Denies pelvic pain, Denies urinary incontinence and Denies vaginal discharge Neurologic: Reports system reviewed and no additional complaints, except as documented Psychiatric: Psychiatric: Reports no additional psychiatric complaints Endocrine: Endocrine: Denies palpitations PMFSH Past Medical History Medical History Anxiety Coronary artery disease Dyslipidemia Emphysema/COPD Gastroesophageal reflux disease History of myocardial infarction Hypertension Obstructive sleep apnea Not compliant with treatment. Tobacco dependence Surgical History Surgical History History of arthroscopy of right knee History of bilateral hip replacements History of section History of cholecystectomy History of coronary artery bypass graft (2019) Family History Family History Father , age 62 Heart disease Mother , age 72 Cerebrovascular accident Sibling Heart disease Grandparent Heart disease Social History Social History (System 09/23/23 @ 09:16 by Ella Cavazos) Smoking packs per day: 0.5 Smoking cigarettes per day: 10.0 Years smoked: 45 Smoking pack-years: 22.50 Smoking status: Current every day smoker Tobacco type: cigarettes Additional smoking assessment comments: Smokes about 4 cigarettes a day. Alcohol intake: current Alcohol use details: 4/MONTH Substance use: never Substance use type: does not use Lack of Transportation: No Lack of Food: Never True Current Housing: I Have Housing Concerned About Future Housing: No Difficulty Paying Gas/Electric Bills: No Difficulty Paying for Meds: No Currently Unemployed: No Living arrangements: with family Additional living arrangements comments: Resides in [place] with her , 2 children, and some grandchildren. 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 Gender identity (if verbalized by the patient): Female Spiritual care concerns: No Meds Home Medications and Allergies Home Medications Medication Instructions Recorded Confirmed Type albuterol sulfate 90 mcg/actuation 1 puff inhalation Q4H PRN 04/23/21 10/05/23 History aerosol inhaler Shortness Of Breath Or Wheezing atorvastatin 40 mg tablet 40 mg PO DAILY 04/23/21 10/05/23 History losartan 25 mg tablet 25 mg PO DAILY 04/23/21 10/05/23 History metoprolol succinate 50 mg 50 mg PO DAILY 04/23/21 10/05/23 History tablet,extended release 24 hr nitroglycerin 0.4 mg sublingual 0.4 mg sublingual Q5M PRN Chest 04/23/21 10/05/23 History tablet Pain omeprazole 20 mg capsule,delayed 20 mg PO DAILY PRN Acid Reflux 04/23/21 10/05/23 History release tramadol 50 mg tablet 50 mg PO Q6H PRN Pain 04/23/21 10/05/23 History apixaban 5 mg tablet (Eliquis) 5 mg PO BID 08/26/23 10/05/23 History omega 9-ywf-bgl-fish oil 900 1 cap PO DAILY 10/05/23 10/05/23 History mg-1,400 mg capsule,delayed release Allergies
[2023-10-08] MEDS: LACTATED RINGERS 1,000 ML 30 ML IV CONT (12:15)
[2023-10-08] MEDS: ACETAMINOPHEN 500 MG TABLET 1000 MG PO (12:45)
--- NOTE | 2023-10-08 13:20 | WPDHPUPDATE1 ---
History and Physical Update Update Date/Time: 10/08/23 13:20 History and Physical has been reviewed, including an updated exam of the patient. There are NO changes in the patient's condition. Risks, benefits, and alternatives have been discussed and questions answered. Patient agrees to proceed with procedure.
--- NOTE | 2023-10-08 13:45 | WPDANESEPPF ---
Anes - Initial Pre Proc Eval Procedure: Operation Date: 10/08/23 14:00 Proposed Procedures p Hysteroscopy Dilation and Curettage - Rigoberto Wesley MD Date/Time: 10/08/23 13:45 Surgeon: Rigoberto Wesley MD Pre Op Diagnosis: post menopausal bleeding Patient Data Age: 63 Gender: F Height: 1.52 m Weight: 109.8 kg Last Vital Signs Temp 97.2 F L 10/08/23 12:30 Pulse 78 10/08/23 12:30 Resp 18 10/08/23 12:30 BP 147/68 H 10/08/23 12:30 Pulse Ox 100 10/08/23 12:30 O2 Del Method Room Air 10/08/23 12:30 Allergies Allergy/AdvReac Type Severity Reaction Status Date / Time Sulfa (Sulfonamide Allergy Mild Hives Verified 10/08/23 13:02 Antibiotics) Home Medications Medication Instructions Recorded Confirmed Type albuterol sulfate 90 mcg/actuation 1 puff inhalation Q4H PRN 04/23/21 10/05/23 History aerosol inhaler Shortness Of Breath Or Wheezing atorvastatin 40 mg tablet 40 mg PO DAILY 04/23/21 10/05/23 History losartan 25 mg tablet 25 mg PO DAILY 04/23/21 10/05/23 History metoprolol succinate 50 mg 50 mg PO DAILY 04/23/21 10/05/23 History tablet,extended release 24 hr nitroglycerin 0.4 mg sublingual 0.4 mg sublingual Q5M PRN Chest 04/23/21 10/05/23 History tablet Pain omeprazole 20 mg capsule,delayed 20 mg PO DAILY PRN Acid Reflux 04/23/21 10/05/23 History release tramadol 50 mg tablet 50 mg PO Q6H PRN Pain 04/23/21 10/05/23 History apixaban 5 mg tablet (Eliquis) 5 mg PO BID 08/26/23 10/05/23 History omega 2-vqy-bni-fish oil 900 1 cap PO DAILY 10/05/23 10/05/23 History mg-1,400 mg capsule,delayed release Patient hx anesthesia problems: none Family hx anesthesia problems: none Results Review: All pre-operative results and documents have been reviewed as part of the pre-operative evaluation. [facility] Past Medical History Medical History Anxiety Coronary artery disease Dyslipidemia Emphysema/COPD Gastroesophageal reflux disease History of myocardial infarction Hypertension Obstructive sleep apnea Not compliant with treatment. Tobacco dependence Surgical History Surgical History History of arthroscopy of right knee History of bilateral hip replacements History of section History of cholecystectomy History of coronary artery bypass graft (2019) Family History Family History Father , age 62 Heart disease Mother , age 72 Cerebrovascular accident Sibling Heart disease Grandparent Heart disease Social History Social History (System 09/23/23 @ 09:16 by Ella Cavazos) Smoking packs per day: 0.5 Smoking cigarettes per day: 10.0 Years smoked: 45 Smoking pack-years: 22.50 Smoking status: Current every day smoker Tobacco type: cigarettes Additional smoking assessment comments: Smokes about 4 cigarettes a day. Alcohol intake: current Alcohol use details: 4/MONTH Substance use: never Substance use type: does not use Lack of Transportation: No Lack of Food: Never True Current Housing: I Have Housing Concerned About Future Housing: No Difficulty Paying Gas/Electric Bills: No Difficulty Paying for Meds: No Currently Unemployed: No Living arrangements: with family Additional living arrangements comments: Resides in [place] with her , 2 children, and some grandchildren. 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 Gender identity (if verbalized by the patient): Female Spiritual care concerns: No Anes - Eval Final PreProcedure Day of Procedure 10/08/23 13:45 Patient weight: morbidly obese Heart: regular rate and rhythm Lungs: clear to auscultation Airway: Mallampati scale class III Neurological: alert and oriented Last oral intake: >/= 8 hours A
[2023-10-08] MEDS: LIDOCAINE HCL 1% LOCAL INJ 10 ML VIAL INFILTRATE (14:14)
--- NOTE | 2023-10-08 14:28 | W.PM.PROC2 ---
Procedure Note - Detailed Date of Procedure 10/08/23 Pre-op Diagnosis post menopausal bleeding Post-op Diagnosis Same Procedure Performed paracervical block hysteroscopy dilation & curettage Surgeon Rigoberto Wesley MD Anesthesia General Indications abnormal uterine bleeding Findings normal appearing intrauterine cavity. Normal tubal ostia bilaterally Description of Procedure Sena Pretty presents for the above procedure for postmenopausal bleeding. She was counseled as to the indications, risks, benefits, and alternatives to surgery, with the risks including bleeding, infection, damage to surrounding organs, VTE, and complications of anesthesia. Her verbal and written consent was obtained. PROCEDURE: The patient was taken to the OR and general anesthesia induced. She was prepped and draped in Ludwin stirrups with support of the back and bilateral lower extremities. I/O catheterization performed of the bladder. The above findings were noted. Infiltration with 1% lidocaine at the 3 and 9 o'clock cervical positions was performed. A single tooth tenaculum was placed on the anterior lip of the cervix. The cervix was dilated with sequential Olga dilators. Hysteroscopy, using a normal saline medium, was performed and showed the above findings. Sharp uterine curettage was then performed and tissue placed on Telfa. The tenaculum was removed and hemostasis was observed. The patient tolerated the procedure well. Sponge, lap, and needle counts were correct. The patient had SCD's on throughout the case for VTE prophylaxis. The patient was taken to the recovery room in stable condition. Estimated Blood Loss 5 Drains No Packing No Pathology Yes (endometrial curettings ) Complications No immediate complications Condition Stable Disposition PACU [facility] Billing Surgery - Charge Forward: Surgery Billing
[2023-10-08] MEDS: fentaNYL CITRATE INJ (*CRX) 100 MCG/2 ML VIAL 25 MCG IV PUSH ×4 (14:44→15:00)
[2023-10-08] MEDS: oxyCODONE HCL (*CRX) 5 MG TAB IR PO (15:40)
== END 2023-10-08 16:26 | disposition home or self-care (01) ==
PROVIDERS: PCP Family Medicine; Visit Provider Student in an Organized Health Care Education/Training Program
PROC: 0U5B8ZZ Destruction of Endometrium, Via Natural or Artificial Opening Endoscopic (ICD-10-PCS; CPT 58563; principal; 2023-10-08 14:00)
DX: N95.0 Postmenopausal bleeding (principal); F41.9 Anxiety disorder, unspecified; E78.5 Hyperlipidemia, unspecified; J43.9 Emphysema, unspecified; K21.9 Gastro-esophageal reflux disease without esophagitis; I10 Essential (primary) hypertension; G47.33 Obstructive sleep apnea (adult) (pediatric); F17.210 Nicotine dependence, cigarettes, uncomplicated; E66.01 Morbid (severe) obesity due to excess calories; Z68.42 Body mass index [BMI] 45.0-49.9, adult; Z79.51 Long term (current) use of inhaled steroids; Z79.891 Long term (current) use of opiate analgesic; Z79.01 Long term (current) use of anticoagulants; Z86.79 Personal history of other diseases of the circulatory system; Z95.5 Presence of coronary angioplasty implant and graft; Z82.49 Family history of ischemic heart disease and other diseases of the circulatory system
CPT/HCPCS: 58558; 88305; A9270; J1100; J2250; J2405; J2704; J3010; J7120

== ENCOUNTER 2024-10-31 09:14 | Outpatient (CLI) | payer MEDICARE, MEDICAID, SELFPAY ==
[2024-10-31 09:49] LABS: Hematocrit 41.5 % (37.0-47.0); Hemoglobin 13.2 g/dL (12.0-15.0)
[2024-10-31 10:02] LABS: Anion Gap 0 mmol/L (4-12); Blood Urea Nitrogen 16 mg/dL (7-17); Calcium 9.3 mg/dL (8.4-10.2); Carbon Dioxide 33 mmol/L (22-30); Chloride 106 mmol/L (98-107); Estimated Glomerular Filt Rate > 60; Glucose 132 mg/dL (65-110); Potassium 4.4 mmol/L (3.4-5.0); Sodium 139 mmol/L (137-145)
== END 2024-10-31 09:15 | disposition home or self-care (01) ==
LOC: ANHSURGERY 09:20
PROVIDERS: Anesthesiology; PCP Physician Assistant; Visit Provider Student in an Organized Health Care Education/Training Program
DX: R60.9 Edema, unspecified (principal); N85.00 Endometrial hyperplasia, unspecified; Z01.818 Encounter for other preprocedural examination
CPT/HCPCS: 36415; 80048; 85014; 85018

== ENCOUNTER 2024-11-03 03:37 | Day surgery (SDC) | payer MEDICARE, MEDICAID, SELFPAY ==
--- NOTE | 2024-10-20 11:29 | PC.NURSE ---
Report to the Outpatient Waiting Room, entrance under the green pavilion located off [facility], at time _10 AM on date _11/03/24 . Planned Procedure Time: __1200 NOON .? Time changes happen often and if your time is changed the preop area will call you the afternoon before. - You and your visitor will be asked to self-screen and do not enter if you have any COVID symptoms. Please call surgeon if you need to reschedule. - A mask is optional within the hospital at this time. Patients may have clear liquids (water, carbonated beverages, clear teas, apple juice) until 3 hours prior to surgery( 9 AM) with a maximum of 20 ounces. - No food from midnight until time of surgery and no smoking. This includes no chewing gum, candy or mints. - Infants may have breast milk until 4 hours before surgery, formula 6 hours prior to surgery. - Children will be allowed to drink immediately following surgery.? If applicable, please bring a bottle or sippy cup to assist with drinking. Juice, water, soda, and popsicles are readily available.? For infants on formula, please bring formula the day of surgery.? Pacifiers are allowed. Take only the following medications with a SIP of water on the morning of surgery: _INHALER IF NEEDED,METOPROLOL, DO NOT STOP ANY OF YOUR OTHER PRESCRIPTION MEDICATIONS PRIOR TO SURGERY EXCEPT THE FOLLOWING Medications to discontinue per physician ___ELIQUIS PER DR CATHERINE. HOLD _ALL VITAMINS AND SUPPPLEMENTS 3 DAYS PRE OP Date to take last dose____10/30/24 Please no make-up, nail kyrgyz, hairspray, perfume, deodorant, or body powder the day of surgery.? No jewelry (including any body piercings) or valuables the day of surgery, leave them at home.? Please take a shower or bath the night before, or the morning of, surgery with an antibacterial soap.? Wear comfortable, loose fitting clothing.? Children are encouraged to wear pajamas. - Jewelry must be removed prior to entering the operating room.? Rings and piercings that are not removed may be cut off. - The hospital will not accept responsibility for valuables.? - Please leave all valuables, including medications, at home the day of surgery. If you are going home after surgery, a licensed cdl driver must drive you home.? - NO public transportation without another adult if you receive anesthesia. - We recommend that an adult stay with you for 24 hours following discharge. - We also recommend that you do not drive, make important decision, drink alcoholic beverages, or take any drugs that were not prescribed by your health care provider for at least 24 hours after your discharge time. For Pediatric surgeries, we recommend two adults accompany the child home. Follow any additional instructions given to you from your surgeon. Telephone instructions given to __PATIENT and asked if any additional questions and then verbalized understanding. Patient advised to call surgeon office or pre surgery nurse liaison [phone] if any additional questions.
[2024-10-20 11:57] VITALS: BMI 46.0
[2024-11-03] VITALS (7 sets, daily range): BP systolic 144–170; BP diastolic 50–79; PULSE 57–72; RESP 14–16; TEMP 37; O2SAT 96–100; BMI 46.3
--- NOTE | 2024-11-03 07:30 | PM.IMHP ---
H&P: HPI History of Present Illness Date/Time: 11/03/24 07:30 Chief Complaint: postmenopausal bleeding Narrative: 64-year-old female who presents for hysteroscopy D&C for postmenopausal bleeding. Patient had pelvic ultrasound which showed endometrial lining of 2.5 cm. Patient has had previous episode of postmenopausal bleeding. Patient had a hysteroscopy D&C in September of 2023. Endometrial thickness at that time was 9 mm. Review of Systems Cardiovascular: Cardiovascular: Denies chest pain, Denies leg edema, Denies palpitations, Denies dyspnea and Denies dyspnea on exertion Respiratory: Respiratory: Denies cough, Denies dyspnea and Denies dyspnea on exertion Gastrointestinal: Gastrointestinal: Denies abdominal pain, Denies constipation, Denies diarrhea, Denies nausea and Denies vomiting Genitourinary: Genitourinary: Denies hematuria, Denies urinary frequency, Denies dysuria, Denies pelvic pain, Denies urinary incontinence and Denies vaginal discharge Neurologic: Reports system reviewed and no additional complaints, except as documented Psychiatric: Psychiatric: Reports no additional psychiatric complaints Endocrine: Endocrine: Denies palpitations PMFSH Past Medical History Medical History Anxiety Coronary artery disease Dyslipidemia Emphysema/COPD Gastroesophageal reflux disease History of myocardial infarction Hypertension Obstructive sleep apnea Not compliant with treatment. Tobacco dependence Surgical History Surgical History History of arthroscopy of right knee History of bilateral hip replacements History of section History of cholecystectomy History of coronary artery bypass graft (2018) History of hysteroscopy D & C Family History Family History Father , age 62 Heart disease Mother , age 72 Cerebrovascular accident Sibling Heart disease Grandparent Heart disease Social History Social History Smoking packs per day: 0.5 Smoking cigarettes per day: 10.0 Years smoked: 45 Smoking pack-years: 22.50 Smoking status: Current every day smoker Tobacco type: cigarettes Additional smoking assessment comments: Smokes about 4 cigarettes a day. Alcohol intake: current Alcohol use details: 6 PACK EVERY OTHER WK Substance use: never Substance use type: does not use Do You Feel Safe in your Home?: Yes Lack of Transportation: No Lack of Food: Never True Current Housing: I Have Housing Concerned About Future Housing: No Difficulty Paying Gas/Electric Bills: No Difficulty Paying for Meds: No Currently Unemployed: YES Education: High School Diploma/GED Living arrangements: with family Additional living arrangements comments: Resides in [place] with her , 2 children, and some grandchildren. 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 Gender identity (if verbalized by the patient): Female Spiritual care concerns: No Meds Home Medications and Allergies Home Medications Medication Instructions Recorded Confirmed Type albuterol sulfate 90 mcg/actuation 1 puff inhalation Q4H PRN 04/23/21 10/20/24 History aerosol inhaler Shortness Of Breath Or Wheezing losartan 25 mg tablet 25 mg PO DAILY 04/23/21 10/20/24 History metoprolol succinate 50 mg 50 mg PO DAILY 04/23/21 10/20/24 History tablet,extended release 24 hr nitroglycerin 0.4 mg sublingual 0.4 mg sublingual Q5M PRN Chest 04/23/21 10/20/24 History tablet Pain omeprazole 20 mg capsule,delayed 20 mg PO DAILY PRN Acid Reflux 04/23/21 10/20/24 History release tramadol 50 mg tablet 50 mg PO Q6H PRN Pain 04/23/21 10/20/24 History apixaban 5 mg tablet (Eliquis) 5 mg PO BID 08/26/23 10/20/24 History omega 4-dyd-hel-fish oil 900 1 cap PO DAILY 10/05/23 10/20/24 History mg-1,400 mg capsule,delayed release cyclobenzaprine 10 mg tablet 10 mg PO PRN PRN Muscle Spasm 08/09/24 10/20/24 History atorvastatin 40 mg tablet 40 mg PO DAILY 10/20/24 10/20/24 History hydrochlorothiazide 12.5 mg tablet 12.5 mg PO PRN PRN SWELLING 10/20/24 10/20/24 History Allergies Allergy/AdvReac Type Severity Reaction Status Date / Time Sulfa (Sulfonamide Allergy Mild Hives Verified 10/20/24 11:37 Antibiotics) Exam Const: General: no acute distress Eyes: EOM: EOMs intact bilaterally Neck: Neck: supple Thyroid: thyroid normal Chest: Breast/axilla inspection: normal inspection of the breasts Breast/axilla palpation: normal palpation of the breasts, normal palpation of the axillae and no axillary lymphadenopathy Resp: Effort & Inspection: normal respiratory effort Auscultation: clear to auscultation bilaterally Cardio: Rate: regular rate Rhythm: regular rhythm GI: Inspection: non-distended GI Palp: Yes Soft to palpation, No Tenderness to palpation present (GI) and No Guarding due to palpation present (GI) Auscultation: normal bowel sounds : General: No bladder normal to palpation External Female Exam: normal external appearance Speculum Exam - Vagina: normal vaginal discharge and No vaginal bleeding Speculum Exam - Cervix: nontender Bimanual exam- vagina & uterus: No bladder normal to palpation and No Cervical tenderness present OB/external & speculum: No vaginal bleeding Skin: General skin exam: normal color and no rashes or lesions noted Neuro: Cognition (Neuro): normal cognition Speech: normal speech Extrem: General: normal to inspection and no edema Psych: Mental Status: mental status grossly normal Affect: normal affect Assessment and Plan Assessment and plan (1) Post-menopausal bleeding: Code(s): N95.0 - Postmenopausal bleeding Status: Inactive Assessment and Plan: ? 64-year-old female who presents with postmenopausal bleeding this is the patients second episode of PMB she had a hysteroscopy D&C last year with benign findings Patient had pelvic ultrasound which showed a 2.5 cm? thickened endometrial lining Recommended tissue sampling Risks, benefits, alternatives discussed at length Patient elects to proceed with hysteroscopy, D&C Patient consented for surgery at length ?instructed patient to stop Eliquis 1 day prior operation Will proceed with above operation
[2024-11-03] MEDS: ACETAMINOPHEN 500 MG TABLET 1000 MG PO (10:25)
[2024-11-03] MEDS: LACTATED RINGERS 1,000 ML 30 ML IV CONT (10:27)
--- NOTE | 2024-11-03 11:26 | P.PNAN_ITS ---
Anes - Initial Pre Proc Eval Procedure: Operation Date: 11/03/24 12:00 Proposed Procedures p Hysteroscopy, Dilation and Curettage - Rigoberto Wesley MD Date/Time: 11/03/24 11:26 Surgeon: Rigoberto Wesley MD Pre Op Diagnosis: endometrial hyperplasia Patient Data Age: 64 Gender: F Height: 1.52 m Weight: 107.6 kg Last Vital Signs Temp 37.0 C 11/03/24 10:00 Pulse 68 11/03/24 10:00 Resp 16 11/03/24 10:00 BP 144/55 H 11/03/24 10:44 Pulse Ox 96 11/03/24 10:00 Allergies Allergy/AdvReac Type Severity Reaction Status Date / Time Sulfa (Sulfonamide Allergy Mild Hives Verified 11/03/24 10:30 Antibiotics) Home Medications Medication Instructions Recorded Confirmed Type albuterol sulfate 90 mcg/actuation 1 puff inhalation Q4H PRN 04/23/21 10/20/24 History aerosol inhaler Shortness Of Breath Or Wheezing losartan 25 mg tablet 25 mg PO DAILY 04/23/21 10/20/24 History metoprolol succinate 50 mg 50 mg PO DAILY 04/23/21 11/03/24 History tablet,extended release 24 hr nitroglycerin 0.4 mg sublingual 0.4 mg sublingual Q5M PRN Chest 04/23/21 10/20/24 History tablet Pain omeprazole 20 mg capsule,delayed 20 mg PO DAILY PRN Acid Reflux 04/23/21 10/20/24 History release tramadol 50 mg tablet 50 mg PO Q6H PRN Pain 04/23/21 10/20/24 History apixaban 5 mg tablet (Eliquis) 5 mg PO BID 08/26/23 11/03/24 History omega 2-zpc-bla-fish oil 900 1 cap PO DAILY 10/05/23 11/03/24 History mg-1,400 mg capsule,delayed release cyclobenzaprine 10 mg tablet 10 mg PO PRN PRN Muscle Spasm 08/09/24 10/20/24 History atorvastatin 40 mg tablet 40 mg PO DAILY 10/20/24 10/20/24 History hydrochlorothiazide 12.5 mg tablet 12.5 mg PO PRN PRN SWELLING 10/20/24 10/20/24 History Patient hx anesthesia problems: none Family hx anesthesia problems: none Results Review: All pre-operative results and documents have been reviewed as part of the pre- operative evaluation. [facility] Past Medical History Medical History Anxiety Coronary artery disease Dyslipidemia Emphysema/COPD Gastroesophageal reflux disease History of myocardial infarction Hypertension Obstructive sleep apnea Not compliant with treatment. Tobacco dependence Surgical History Surgical History History of arthroscopy of right knee History of bilateral hip replacements History of section History of cholecystectomy History of coronary artery bypass graft (2019) History of hysteroscopy D & C Family History Family History Father , age 62 Heart disease Mother , age 72 Cerebrovascular accident Sibling Heart disease Grandparent Heart disease Social History Social History Smoking packs per day: 0.5 Smoking cigarettes per day: 10.0 Years smoked: 45 Smoking pack-years: 22.50 Smoking status: Current every day smoker Tobacco type: cigarettes Additional smoking assessment comments: Smokes about 4 cigarettes a day. Alcohol intake: current Alcohol use details: 6 PACK EVERY OTHER WK Substance use: never Substance use type: does not use Do You Feel Safe in your Home?: Yes Lack of Transportation: No Lack of Food: Never True Current Housing: I Have Housing Concerned About Future Housing: No Difficulty Paying Gas/Electric Bills: No Difficulty Paying for Meds: No Currently Unemployed: YES Education: High School Diploma/GED Living arrangements: with family Additional living arrangements comments: Resides in [place] with her , 2 children, and some grandchildren. 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 Gender identity (if verbalized by the patient): Female Spiritual care concerns: No Anes - Eval Final PreProcedure Day of Procedure 11/03/24 11:26 Patient weight: morbidly obese Heart: regular rate and rhythm Lungs: decreased breath sounds Airway: Mallampati scale Neurological: alert and oriented Last oral intake: >/= 8 hours ASA classification: III Emergent: no Anesthetic plan: proceed Anesthesia type and monitoring: general GIVS and standard monitoring Results Review: All pre-operative results and documents have been reviewed as part of the pre- operative evaluation. Informed Consent: The patient's anesthetic plan and its attendant risks and benefits were disc ussed with the patient/family/POA. Questions were solicited and answers provided to the satisfaction of the patient/family/POA.
--- NOTE | 2024-11-03 11:36 | WPDHPUPDATE1 ---
History and Physical Update Update Date/Time: 11/03/24 11:36 History and Physical has been reviewed, including an updated exam of the patient. There are NO changes in the patient's condition. Risks, benefits, and alternatives have been discussed and questions answered. Patient agrees to proceed with procedure.
[2024-11-03] MEDS: LIDOCAINE HCL 1% LOCAL INJ 10 ML VIAL INFILTRATE (11:52)
--- NOTE | 2024-11-03 12:30 | W.PM.PROC2 ---
Procedure Note - Detailed Date of Procedure 11/03/24 Pre-op Diagnosis postmenopausal bleeding thickened endometrium Post-op Diagnosis Same Procedure Performed hysteroscopy dilation & curettage Surgeon Rigoberto Wesley MD Anesthesia General Indications postmenopausal bleeding thickened endometrium on US Findings Globally thickened endometrium. Polypoid appearing growths. Normal tubal ostia bilaterally Description of Procedure Sena Pretty presents for the above procedure. She was counseled as to the indications, risks, benefits, and alternatives to surgery, with the risks including bleeding, infection, damage to surrounding organs, VTE, and complications of anesthesia. Her verbal and written consent was obtained. PROCEDURE: The patient was taken to the OR and general anesthesia induced. She was prepped and draped in Ludwin stirrups with support of the back and bilateral lower extremities. I/O catheterization performed of the bladder. The above findings were noted. A single tooth tenaculum was placed on the anterior lip of the cervix. The cervix was dilated with sequential Olga dilators. Hysteroscopy, using a normal saline medium, was performed and showed the above findings. Tissue shavings were obtained through operative hysteroscopy under direct visualization. The endometrium was sampled globally. The tenaculum was removed and hemostasis was observed. The patient tolerated the procedure well. Sponge, lap, and needle counts were correct. The patient had SCD's on throughout the case for VTE prophylaxis. The patient was taken to the recovery room in stable condition. Estimated Blood Loss 10 Drains No Packing No Pathology Yes (endometrial curettings ) Complications No immediate complications Condition Stable Disposition PACU [facility] Billing Surgery - Charge Forward: Surgery Billing
--- NOTE | 2024-11-03 13:18 | SUR.PHASEII ---
MD Gracia notified - pt requesting pain pill prior to discharge. New orders for RN to give 5mg oxycodone PO once.
[2024-11-03] MEDS: oxyCODONE HCL (*CRX) 5 MG TAB IR PO (13:23)
--- NOTE | 2024-11-03 13:43 | SUR.PHASEII ---
Pt states MD Wesley told her to resume her blood thinners tonight.
== END 2024-11-03 13:47 | disposition home or self-care (01) ==
PROVIDERS: PCP Physician Assistant; Visit Provider Student in an Organized Health Care Education/Training Program
PROC: 0U5B8ZZ Destruction of Endometrium, Via Natural or Artificial Opening Endoscopic (ICD-10-PCS; CPT 58563; principal; 2024-11-03 12:00)
DX: N95.0 Postmenopausal bleeding (principal); N85.8 Other specified noninflammatory disorders of uterus; I10 Essential (primary) hypertension; I25.10 Atherosclerotic heart disease of native coronary artery without angina pectoris; E78.5 Hyperlipidemia, unspecified; I25.2 Old myocardial infarction; G47.33 Obstructive sleep apnea (adult) (pediatric); J43.9 Emphysema, unspecified; K21.9 Gastro-esophageal reflux disease without esophagitis; Z95.1 Presence of aortocoronary bypass graft; Z79.51 Long term (current) use of inhaled steroids; F17.210 Nicotine dependence, cigarettes, uncomplicated; E66.01 Morbid (severe) obesity due to excess calories; Z68.42 Body mass index [BMI] 45.0-49.9, adult
CPT/HCPCS: 58558; 88305; A9270; J1100; J1885; J2003; J2250; J2405; J2704; J3010; J7120

== ENCOUNTER 2025-03-10 14:51 | Outpatient (CLI) | payer MEDICARE, MEDICAID, SELFPAY ==
--- NOTE | ~2025-03-10 | MM_ITS ---
EXAMINATION: MM screening gustavo BI w ethel HISTORY: Screening TECHNIQUE: Craniocaudal and mediolateral oblique 3-D tomosynthesis images were obtained and synthetic 2-D images were generated. CAD analysis was submitted and interpreted. COMPARISON: No prior mammogram is available for comparison at this institution. BREAST PARENCHYMAL COMPOSITION: Not Dense: The breasts are almost entirely fatty. FINDINGS: There is no evidence of suspicious mass, calcification, or architectural distortion to sugg est malignancy in either breast. There has been no suspicious interval change. IMPRESSION: 1. No mammographic evidence of malignancy. 2. Recommend routine screening mammography in one year. BI-RADS Category 1: Negative Reviewed, dictated and finalized at location A.
== END 2025-03-10 14:52 | disposition home or self-care (01) ==
LOC: MICIMG 14:51
PROVIDERS: PCP Physician Assistant; Visit Provider Physician Assistant
DX: Z12.31 Encounter for screening mammogram for malignant neoplasm of breast (principal)
CPT/HCPCS: 77063; 77067

== ENCOUNTER 2025-06-26 08:59 | Outpatient (CLI) | payer MEDICARE, MEDICAID, SELFPAY ==
--- NOTE | ~2025-06-26 | DEXA_ITS ---
Bone Density Report Name: TWAN DOMINGUEZ Age: 64 Sex: Female Ethnicity: White Date of : 1960 Indication: postmenopausal; screening for osteoporosis; prior fracture; asthma or emphysema; Referring Provider: Dagoberto, Brian Study: Bone densitometry was performed. Exam Date: June 26, 2025 Accession number: [id number] Bone Density: Region BMD T-score Z-score Classification AP Spine(L1-L4) 1.089 0.4 2.2 Normal World Health Organization criteria for BMD impression classify patients as: Normal (T-score at or above -1.0), Osteopenia (T-score between -1.0 and -2.5), or Osteoporosis (T-score at or below -2.5). Clinical Information Provided by Patient: Have had a previous hip or vertebral fracture Has had a low trauma fracture Smokes Has the following medical conditions: Asthma or Emphysema Patient maximum height was 60 Menopause Age: 51 Does not regularly consume dairy products Drinks caffeinated beverages Onset of menses at age 12 Number of children 5 Impression: The patient has normal bone mass. The patient has risk factors, including: smoking, previous fracture. Discussion: INCREASED RISK OF FRACTURE DUE TO HISTORY OF FRACTURE. The patient's previous fracture puts the patient at high risk of a future fracture. In untreated patients, the risk of osteoporotic fracture increases approximately two-fold for each 1.0 SD decrease in T-score. Low bone density is not the only risk factor for fracture; also consider factors such as patient's age, frailty or poor health, risk of falling, risk of injury, previous osteoporotic fracture, family history of osteoporosis, cigarette smoking, low body weight, etc. Not everyone with a low trauma fracture has osteoporosis; osteomalacia and other metabolic bone disorders should also be considered. Patients who have osteoporosis should be evaluated for specific diseases and conditions (secondary causes) that may cause or contribute to bone loss and fracture risk. National Osteoporosis Foundation (NOF) recommends pharmacologic intervention for patients with a prior hip or vertebral fracture regardless of BMD T-score. The patient should follow a healthful lifestyle (good nutrition with adequate calcium and vitamin D, and appropriate weight-bearing exercise). Follow-Up: Consider a repeat BMD and Vertebral Fracture Assessment (VFA) exam in 2 years or sooner if medically necessary, to reassess this patient's status. Reported by: HEIDI on 06/26/2025 9:27:00 AM. Reviewed, dictated and finalized at location A.
--- NOTE | ~2025-06-26 | CT_ITS ---
CT Scan of the Chest without Contrast: Clinical Indication: Lung cancer screening, nicotine dependence Technique: Contiguous sections were acquired throughout the chest without intravenous contrast. Dose reduction technique was used on this scan by utilizing automated exposure control and iterative recon struction technique. The dose-length product (DLP) was 288.84 mGy-cm. Findings: There is no evidence of any significant mediastinal, hilar or axillary lymphadenopathy. Extensive cor onary artery calcifications are present. There is no evidence of pleural or pericardial effusion. The lungs are clear. No pulmonary nodules or infiltrates are noted. Images through the upper abdomen reveal no abnormalities. Impression: Lung RADS 1: Negative. 12 month follow-up screening CT advised. Reviewed, dictated and finalized at location . Impression: Lung RADS 1: Negative. 12 month follow-up screening CT advised.
== END 2025-06-26 09:00 | disposition home or self-care (01) ==
LOC: MICIMG 09:01
PROVIDERS: PCP Internal Medicine; Visit Provider Internal Medicine
DX: Z12.2 Encounter for screening for malignant neoplasm of respiratory organs (principal); Z87.891 Personal history of nicotine dependence; Z78.0 Asymptomatic menopausal state
CPT/HCPCS: 71271; 77080